=== PATIENT | female | born 1985 | race Caucasian/White ===

== ENCOUNTER 2018-06-29 12:56 | Emergency (ER) | payer BC, OTHER ==
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
--- NOTE | 2018-06-29 16:21 | RAD REPORT ---
EXAM DESCRIPTION: US - Abdomen Exam Limited - 06/29/2018 3:31 pm CLINICAL HISTORY: Abdominal pain. COMPARISON: None. FINDINGS: A limited ultrasound was performed to assess for ascites Ascites is not seen within the abdomen/pelvis IMPRESSION: Ascites is not visualized. This does not exclude an intraabdominal injury.
[2018-06-29] MEDS ORDERED: KETOROLAC 30 MG/ML INJ ONE (16:59)
== END 2018-06-29 17:19 | disposition home or self-care (01) ==
LOC: ER 12:56
DX: S63.501A Unspecified sprain of right wrist, initial encounter (principal); V49.40XA Driver injured in collision with unspecified motor vehicles in traffic accident, initial encounter; Y92.410 Unspecified street and highway as the place of occurrence of the external cause
CPT/HCPCS: 71046; 76705; 96372; 99283

== ENCOUNTER 2020-10-08 23:41 | Emergency (ER) | payer BC ==
[2020-10-09 00:42] LABS: Absolute Lymphocytes (CBC) 3.1 K/uL (0.7-4.9); Basophils % 1.1 % (0-1.3); Hematocrit 43.2 % (36.0-45.0); Lymphocytes % 36.1 % (15.3-44.8); MPV 8.5 fL (7.6-11.3); RBC Red Blood Cell Count 4.69 M/uL (3.86-4.86)
[2020-10-09] MEDS ORDERED: NA CHLORIDE 0.9% 1,000 ML ONE (01:08)
[2020-10-09] MEDS ORDERED: ONDANSETRON 4 MG/2 ML VIAL ONE (01:08)
[2020-10-09] MEDS ORDERED: FENTANYL CITR 100 MCG/2 ML ONE ×2 (01:08→02:20)
[2020-10-09 01:15] LABS: ALT/SGPT 20 U/L (12-78); AST/SGOT 18 U/L (15-37); Albumin 3.6 g/dL (3.4-5.0); Alkaline Phosphatase 57 U/L (45-117); BUN Blood Urea Nitrogen 7 mg/dL (7-18); Bicarbonate 26 mmol/L (21-32); Bilirubin Direct < 0.1 mg/dL (0-0.2); Bilirubin Total 0.3 mg/dL (0.2-1.0); Glucose Level 95 mg/dL (74-106); Lipase 208 U/L (73-393); Potassium 4.2 mmol/L (3.5-5.1); Protein, Total 6.9 g/dL (6.4-8.2); Sodium Level 142 mmol/L (136-145)
[2020-10-09] MEDS ORDERED: CIPROFLOXACIN 400mg IV 400 MG/200 ML BAG IV ONE (01:59)
[2020-10-09] MEDS ORDERED: METRONIDAZOLE 500mg IVPB 500 MG/100 ML BAG IV ONE (01:59)
--- NOTE | 2020-10-09 04:21 | EDPHYS ---
Physician Documentation [facility] Name: Leila Cordoba Age: 35 yrs Sex: Female : 1985 Arrival Date: 10/08/2020 Time: 23:46 Bed 20 Private MD: BRYON Physician Jethro Salas HPI: 10/09 00:29 This 35 yrs old Female presents to ER via Wheelchair with complaints of jr8 Abdominal pain/Rectal pain. 00:29 The patient presents with abdominal pain in the lower abdomen. Onset: The jr8 symptoms/episode began/occurred gradually, 3 day(s) ago, and became worse. The symptoms radiate to back. Associated signs and symptoms: Pertinent positives: nausea. The symptoms are described as stabbing. Modifying factors: The symptoms are alleviated by nothing, the symptoms are aggravated by movement. Severity of pain: At its worst the pain was moderate in the emergency department the pain is unchanged. The patient has not experienced similar symptoms in the past. Patient stated that she started with constipation about one week ago. Now having lower abdominal pain for 3 days along with dark stools and now maroon blood that will coat the toilet . APRN: 00:02 LMP 09/24/2020 em Historical: - Allergies: 00:02 No Known Allergies; em - PMHx: 00:02 melanoma; em - PSHx: 00:02 None; em - Immunization history:: Adult Immunizations up to date. - Social history:: Smoking status: Patient reports the use of cigarette tobacco products, smokes one-half pack cigarettes per day. ROS: 00:29 Eyes: Negative for injury, pain, redness, and discharge, ENT: Negative for injury, jr8 pain, and discharge, Neck: Negative for injury, pain, and swelling, Cardiovascular: Negative for chest pain, palpitations, and edema, Respiratory: Negative for shortness of breath, cough, wheezing, and pleuritic chest pain, Back: Negative for injury and pain, MS/Extremity: Negative for injury and deformity, Skin: Negative for injury, rash, and discoloration, Neuro: Negative for headache, weakness, numbness, tingling, and seizure. 00:29 Abdomen/GI: Positive for abdominal pain, nausea, constipation, black/tarry stool, rectal pain, rectal bleeding, Negative for vomiting, diarrhea. Exam: 00:29 Constitutional: This is a well developed, well nourished patient who is awake, alert, jr8 and in no acute distress. Cardiovascular: Regular rate and rhythm with a normal S1 and S2. No gallops, murmurs, or rubs. Normal PMI, no JVD. No pulse deficits. Respiratory: Lungs have equal breath sounds bilaterally, clear to auscultation and percussion. No rales, rhonchi or wheezes noted. No increased work of breathing, no retractions or nasal flaring. Back: No spinal tenderness. No costovertebral tenderness. Full range of motion. Skin: Warm, dry with normal turgor. Normal color with no rashes, no lesions, and no evidence of cellulitis. MS/ Extremity: Pulses equal, no cyanosis. Neurovascular intact. Full, normal range of motion. Neuro: Awake and alert, GCS 15, oriented to person, place, time, and situation. Cranial nerves II-XII grossly intact. Motor strength 5/5 in all extremities. Sensory grossly intact. 00:29 Abdomen/GI: Inspection: abdomen appears normal, Bowel sounds: active, all quadrants, Palpation: soft, in all quadrants, moderate abdominal tenderness, in the suprapubic area and left lower quadrant, mass, is not appreciated, rebound tenderness, is not appreciated, voluntary guarding, is not appreciated, involuntary guarding, is not appreciated, no appreciated organomegaly, Rectal exam: rectal tone normal, Stool: No stool in vault. No bleeding on glove tip from exam, hemorrhoid(s), external, internal, without bleeding, without inflammation, without thrombosis, without pain, tenderness, is not appreciated, fecal impaction, is not appreciated, the exam is chaperoned by the nurse, Indicators: McBurney's point is not tender, Akhtar's sign is negative, Rovsing's sign is negative, Liver: tenderness, is not appreciated. Vital Signs: 10/08 23:59 BP 103 / 77; Pulse 84; Resp 16; Temp 97.9; Pulse Ox 99% on R/A; Weight 49.9 kg; Height em 5 ft. 4 in. (162.56 cm); Pain 10/10; 10/09 01:05 BP 122 / 89; Pulse 71; Resp 18 S; Pulse Ox 98% on R/A; ca1 02:00 BP 105 / 78; Pulse 70; Resp 16 S; Pulse Ox 98% ; ca1 04:00 BP 95 / 66; Pulse 61; Resp 16; Pulse Ox 98% on R/A; jb4 10/08 23:59 Body Mass Index 18.88 (49.90 kg, 162.56 cm) em MDM: 00:07 Patient medically screened. 03:14 Differential diagnosis: Hydronephrosis Peptic Ulcer Ureterolithiasis. Data reviewed: donnell vital signs, nurses notes, lab test result(s), radiologic studies, CT scan. Data interpreted: property assessment monitor: rate is 70 beats/min, rhythm is regular, Pulse oximetry: on room air is 98 %. Test interpretation: by ED physician or midlevel provider:. Counseling: I had a detailed discussion with the patient and/or guardian regarding: the historical points, exam findings, and any diagnostic results supporting the discharge/admit diagnosis, lab results, radiology results. 10/09 00:07 Order name: Basic Metabolic Panel; Complete Time: 01:15 10/09 00:07 Order name: CBC with Diff; Complete Time: 00:47 10/09 00:07 Order name: Hepatic Function; Complete Time: 01:15 10/09 00:07 Order name: Lipase; Complete Time: 01:15 10/09 00:28 Order name: CT Abd/Pelvis - PO and IV Contrast 10/09 00:44 Order name: Urine --Ancillary (enter results); Complete Time: 00:47 tt3 10/09 00:07 Order name: IV Saline Lock; Complete Time: 00:37 10/09 00:07 Order name: Labs collected and sent; Complete Time: 00:37 10/09 00:07 Order name: Urine Test (obtain specimen); Complete Time: 00:37 10/09 00:07 Order name: Urine Dipstick-Ancillary (obtain specimen); Complete Time: 00: Administered Medications: 00:40 Drug: NS 0.9% 1000 ml Route: IV; Rate: 1000 ml; Site: right antecubital; ca1 01:54 Follow up: IV Status: Completed infusion; IV Intake: 1000ml em 00:40 Drug: Zofran (Ondansetron) 4 mg Route: IVP; Site: right antecubital; ca1 01:54 Follow up: Response: No adverse reaction em 00:44 Drug: fentaNYL (PF) 50 mcg {Note: rass 0.} Route: IVP; Site: right antecubital; ca1 01:54 Follow up: Response: No adverse reaction; Marked relief of symptoms; Pain is decreased; em RASS: Alert and Calm (0) 01:44 Drug: Flagyl (metroNIDAZOLE) 500 mg Volume: 100 ml; Route: IVPB; Rate: 200 ml/hr; em Infused Over: 30 mins; Site: right antecubital; 02:19 Follow up: Response: No adverse reaction; IV Status: Completed infusion; IV Intake: ca1 100ml 02:03 Drug: fentaNYL (PF) 50 mcg {Note: rass 0.} Route: IVP; Site: right antecubital; em 02:37 Follow up: Response: No adverse reaction; Pain is decreased; RASS: Alert and Calm (0) ca1 02:18 Drug: Cipro (ciprofloxacin) 400 mg Volume: 200 ml; Route: IVPB; Infused Over: 60 mins; ca1 Site: right antecubital; 03:18 Follow up: Response: No adverse reaction; IV Status: Completed infusion jb4 Disposition: 03:21 Co-signature as Attending Physician, Jethro Salas MD I agree with the assessment and donnell plan of care. Disposition: 10/09/20 04:21 Discharged to Home. Impression: Left sided colitis with unspecified complications - Proctitis. - Condition is Stable. - Discharge Instructions: How to Take a Sitz Bath, Proctitis, Colitis. - Prescriptions for Flagyl 500 mg Oral Tablet - take 1 tablet by ORAL route every 8 hours for 7 days; 21 tablet. Tylenol- Codeine #3 300-30 mg Oral Tablet - take 2 tablets by ORAL route every 4-6 hours As needed; 20 tablet. Cipro 500 mg Oral Tablet - take 1 tablet by ORAL route every 12 hours for 7 days; 14 tablet. - Medication Reconciliation Form, Thank You Letter, Antibiotic Education, Prescription Opioid Use form. - Follow up: Private Physician; When: 2 - 3 days; Reason: Recheck today's complaints, Continuance of care, Re-evaluation by your physician. Follow up: Tadeo Deras MD; When: 2 - 3 days; Reason: Recheck today's complaints, Continuance of care, Re-evaluation by your physician. - Problem is new. - Symptoms have improved. Signatures: Dispatcher [employer] Jethro Fisher MD MD cha Munoz, Edgar, RN RN Elliot Kwok PA PA jr8 Bryson, James, RN RN jb4 Nadya Gooden RN RN ca1 Corrections: (The following items were deleted from the chart) 04:31 04:21 10/09/2020 04:21 Discharged to Home. Impression: Left sided colitis with jb4 unspecified complications - Proctitis. Condition is Stable. Forms are Medication Reconciliation Form, Thank You Letter, Antibiotic Education, Prescription Opioid Use. Follow up: Private Physician; When: 2 - 3 days; Reason: Recheck today's complaints, Continuance of care, Re-evaluation by your physician. Follow up: Tadeo Deras; When: 2 - 3 days; Reason: Recheck today's complaints, Continuance of care, Re-evaluation by your physician. Problem is new. Symptoms have improved. donnell
--- NOTE | 2020-10-09 04:21 | ER ---
Nurse's Notes [facility] Name: Leila Cordoba Age: 35 yrs Sex: Female : 1985 Arrival Date: 10/08/2020 Time: 23:46 Bed 20 Private MD: Diagnosis: Left sided colitis with unspecified complications-Proctitis Presentation: 10/08 23:59 Chief complaint: Patient states: dark stool since today, reports passing out on the em toilet and nausea, abdominal pain, denies fever. Coronavirus screen: Client denies travel out of the [place] in the last 14 days. Ebola Screen: Patient negative for fever greater than or equal to 101.5 degrees Fahrenheit, and additional compatible Ebola Virus Disease symptoms Patient denies exposure to infectious person. Patient denies travel to an Ebola-affected area in the 21 days before illness onset. No symptoms or risks identified at this time. Initial Sepsis Screen: Does the patient meet any 2 criteria? No. Patient's initial sepsis screen is negative. Does the patient have a suspected source of infection? No. Patient's initial sepsis screen is negative. Risk Assessment: Do you want to hurt yourself or someone else? Patient reports no desire to harm self or others. Onset of symptoms was October 09, 2020. 23:59 Method Of Arrival: Wheelchair em 23:59 Acuity: ROSALIND 3 em [employer]: 10/09 00:02 LMP 09/24/2020 em Historical: - Allergies: 00:02 No Known Allergies; em - PMHx: 00:02 melanoma; em - PSHx: 00:02 None; em - Immunization history:: Adult Immunizations up to date. - Social history:: Smoking status: Patient reports the use of cigarette tobacco products, smokes one-half pack cigarettes per day. Screenin:10 Abuse screen: Denies threats or abuse. Denies injuries from another. Nutritional ca1 screening: No deficits noted. Tuberculosis screening: No symptoms or risk factors identified. Fall Risk IV access (20 points). Assessment: 00:10 General: Appears in no apparent distress. uncomfortable, Behavior is calm, cooperative, ca1 appropriate for age. Pain: Complains of pain in buttocks and left lower quadrant Pain currently is 6 out of 10 on a pain scale. Pain began 2-3 days ago. Pain: Pain radiates to back and neck Quality of pain is described as aching, sharp, Is intermittent. Neuro: Level of Consciousness is awake, alert, obeys commands, Oriented to person, place, time, situation. Cardiovascular: Heart tones S1 S2 present Capillary refill < 3 seconds Patient's skin is warm and dry. Rhythm is regular. Respiratory: Airway is patent Respiratory effort is even, unlabored, Respiratory pattern is regular, symmetrical, Breath sounds are clear bilaterally. GI: Abdomen is flat, non-distended, Bowel sounds present X 4 quads. Abd is soft X 4 quads Abdomen is tender to palpation X 4 quads. Reports nausea. : No signs and/or symptoms were reported regarding the genitourinary system. EENT: No signs and/or symptoms were reported regarding the EENT system. Derm: Skin is intact, is healthy with good turgor, Skin is pink, warm \T\ dry. Musculoskeletal: Circulation, motion, and sensation intact. Capillary refill < 3 seconds. 01:05 Reassessment: Patient appears in no apparent distress at this time. Patient and/or ca1 family updated on plan of care and expected duration. Pain level reassessed. Patient is alert, oriented x 3, equal unlabored respirations, skin warm/dry/pink. 01:15 Reassessment: finished drinking PO contrast, CT notified. em 02:00 Reassessment: Patient appears in no apparent distress at this time. Patient and/or ca1 family updated on plan of care and expected duration. Pain level reassessed. Patient is alert, oriented x 3, equal unlabored respirations, skin warm/dry/pink. 03:00 Reassessment: Patient appears in no apparent distress at this time. Patient and/or jb4 family updated on plan of care and expected duration. Pain level reassessed. Patient is alert, oriented x 3, equal unlabored respirations, skin warm/dry/pink. Pt to CT. 04:29 Reassessment: Patient appears in no apparent distress at this time. Patient and/or jb4 family updated on plan of care and expected duration. Pain level reassessed. Patient is alert, oriented x 3, equal unlabored respirations, skin warm/dry/pink. Vital Signs: 10/08 23:59 BP 103 / 77; Pulse 84; Resp 16; Temp 97.9; Pulse Ox 99% on R/A; Weight 49.9 kg; Height em 5 ft. 4 in. (162.56 cm); Pain 10/10; 10/09 01:05 BP 122 / 89; Pulse 71; Resp 18 S; Pulse Ox 98% on R/A; ca1 02:00 BP 105 / 78; Pulse 70; Resp 16 S; Pulse Ox 98% ; ca1 04:00 BP 95 / 66; Pulse 61; Resp 16; Pulse Ox 98% on R/A; jb4 10/08 23:59 Body Mass Index 18.88 (49.90 kg, 162.56 cm) em ED Course: 10/08 23:46 Patient arrived in ED. cf2 10/09 00:01 Triage completed. em 00:02 Arm band placed on. em 00:06 Nadya Gooden, RENEE is Primary Nurse. ca1 00:06 Elliot Benson PA is PHCP. jr8 00:06 Jethro Salas MD is Attending Physician. jr8 00:10 Patient has correct armband on for positive identification. Placed in gown. Bed in low ca1 position. Call light in reach. Side rails up X 1. Pulse ox on. NIBP on. Warm blanket given. 00:38 Initial lab(s) drawn, by me, sent to lab. Inserted saline lock: 20 gauge in right ca1 antecubital area, using aseptic technique. Blood collected. 03:18 CT Abd/Pelvis - PO and IV Contrast In Process Unspecified. EDMS 04:19 Tadeo Deras MD is Referral Physician. donnell 04:30 No provider procedures requiring assistance completed. IV discontinued, intact, jb4 bleeding controlled, No redness/swelling at site. Pressure dressing applied. Administered Medications: 00:40 Drug: NS 0.9% 1000 ml Route: IV; Rate: 1000 ml; Site: right antecubital; ca1 01:54 Follow up: IV Status: Completed infusion; IV Intake: 1000ml em 00:40 Drug: Zofran (Ondansetron) 4 mg Route: IVP; Site: right antecubital; ca1 01:54 Follow up: Response: No adverse reaction em 00:44 Drug: fentaNYL (PF) 50 mcg {Note: rass 0.} Route: IVP; Site: right antecubital; ca1 01:54 Follow up: Response: No adverse reaction; Marked relief of symptoms; Pain is decreased; em RASS: Alert and Calm (0) 01:44 Drug: Flagyl (metroNIDAZOLE) 500 mg Volume: 100 ml; Route: IVPB; Rate: 200 ml/hr; em Infused Over: 30 mins; Site: right antecubital; 02:19 Follow up: Response: No adverse reaction; IV Status: Completed infusion; IV Intake: ca1 100ml 02:03 Drug: fentaNYL (PF) 50 mcg {Note: rass 0.} Route: IVP; Site: right antecubital; em 02:37 Follow up: Response: No adverse reaction; Pain is decreased; RASS: Alert and Calm (0) ca1 02:18 Drug: Cipro (ciprofloxacin) 400 mg Volume: 200 ml; Route: IVPB; Infused Over: 60 mins; ca1 Site: right antecubital; 03:18 Follow up: Response: No adverse reaction; IV Status: Completed infusion jb4 Intake: 01:54 IV: 1000ml; Total: 1000ml. em 02:19 IV: 100ml; Total: 1100ml. ca1 Outcome: 04:21 Discharge ordered by . donnell 04:30 Discharged to home ambulatory, with family. jbJoseph 04:30 Condition: stable 04:30 Discharge instructions given to patient, Instructed on discharge instructions, follow up and referral plans. medication usage, Demonstrated understanding of instructions, follow-up care, medications, Prescriptions given X 3. 04:31 Patient left the ED. jb4 Signatures: Dispatcher [employer] Jethro Fisher MD MD cha Munoz, Edgar RN RN Elliot Benson PA PA jr8 Triston Cartwright RN RN jbNadya Cordova RN RN [facility] Jonathon Sapp 2
[2020-10-09 04:40] VITALS: TEMP 97.9
[2020-10-09 04:41] VITALS: O2SAT 98
[2020-10-09 04:44] VITALS: BP 95/66
--- NOTE | 2020-10-09 10:16 | RAD REPORT ---
EXAM DESCRIPTION: CT - Abdomen Pelvis W Contrast - 10/09/2020 6:18 am COMPARISON: None. CLINICAL HISTORY: [facility] MAIN GI bleed;Abd pain TECHNIQUE: CT of the abdomen and pelvis was acquired with IV contrast material. Coronal and sagitt al reconstructions were obtained. Automated exposure control was utilized on this examination as a dose lowering technique. FINDINGS: Lung bases: Clear. Liver: Normal. Gallbladder and biliary: Normal gallbladder. Unremarkable biliary tree. Pancreas: Normal. Spleen: Normal. Adrenal glands: Normal adrenal glands. Kidneys: Small left renal cyst. Normal right kidney. Stomach and Small Bowel: The stomach and small bowel are normal. Urinary bladder: Normal. Uterus and Adnexa: Normal. Colon and Appendix: Anorectal wall thickening is present with mild adjacent fat stranding. No evidenc e of appendicitis. Retroperitoneum and lymph nodes: Normal. Vascular: Normal. Peritoneal cavity: No ascites or free air. Musculoskeletal and soft tissues: Soft tissues are unremarkable. No aggressive bone lesions. No com pression fracture. IMPRESSION: Anorectal wall thickening is consistent with proctitis. Electronically signed by: Sean Jeffery MD 10/09/2020 4:09 AM CDT Due to temporary technical issues with the PACS/Fluency reporting system, reports are being signed by the in house radiologist without review as a courtesy to ensure prompt reporting. The interpreting r adiologist is fully responsible for the content of the report.
== END 2020-10-09 04:31 | disposition home or self-care (01) ==
LOC: ER 23:41
DX: K51.519 Left sided colitis with unspecified complications (principal); K62.89 Other specified diseases of anus and rectum; F17.210 Nicotine dependence, cigarettes, uncomplicated
CPT/HCPCS: 85025; 80048; 36415; 81025; 80076; 83690; 74177; Q9967; J3010 ×2; J7030; J2405; J0744